=== PATIENT | female | born 1950 | race Caucasian/White ===

== ENCOUNTER → 2024-01-19 09:53 | Outpatient (REF) | payer MEDICARE, OTHER, SELFPAY | LOC: HWRAD 09:53 | PROVIDERS: ATTENDING PHYSICIAN Surgery; FAMILY PHYSICIAN Family Medicine | DX: K80.20 Calculus of gallbladder without cholecystitis without obstruction (principal) | CPT/HCPCS: 76700 ==

== ENCOUNTER → 2024-03-21 12:00 | Outpatient (REF) | payer MEDICARE, OTHER, SELFPAY | LOC: SDSPAT 12:00 | PROVIDERS: ATTENDING PHYSICIAN Surgery; FAMILY PHYSICIAN Family Medicine | DX: K80.20 Calculus of gallbladder without cholecystitis without obstruction (principal) | CPT/HCPCS: 36415; 93005 ==

== ENCOUNTER 2024-03-28 17:47 | Emergency (ER) | payer MEDICARE, OTHER, SELFPAY ==
[2024-03-28] VITALS (7 sets, daily range): BP systolic 110–167; BP diastolic 56–83; BMI 26.6
[2024-03-28 18:06] LABS: % Basophils 0.6 % (0-2); % Immature Granulocytes 0.5 % (0-0.5); % Lymphocytes 21.4 % (20.5-51.1); % Monocytes 8.7 % (1.7-9.3); % Neutrophils 65.8 % (42.2-75.2); Absolute Basophils 0.1 10^3/uL (0-0.2); Absolute Eosinophils 0.3 10^3/uL (0-0.7); Absolute Immature Granulocytes 0.1 10^3/uL (0-0.05); Absolute Lymphocytes 2.3 10^3/uL (1.2-3.4); Absolute Monocytes 0.9 10^3/uL (0.1-0.6); Absolute Neutrophils 6.9 10^3/uL (1.4-6.5); Hematocrit 42.8 % (37.0-47.0); Hemoglobin 14.2 g/dL (12.0-16.0); Mean Corp Hgb Conc. 33.2 g/dL (33.0-37.0); Mean Corpuscular Hgb 30.6 pg (27.0-31.0); Mean Corpuscular Volume 92.2 fL (81.0-99.0); Mean Platelet Volume 10.6 fL (7.4-10.4); Nucleated Red Blood Cells % 0 %; Platelet Count 277 10^3/uL (130-400); Red Blood Cell Count 4.64 10^6/uL (4.20-5.40); Red Cell Dist. Width 13.2 % (11.5-14.5); White Blood Cell Count 10.6 10^3/uL (4.8-10.8)
[2024-03-28 18:23] LABS: ALT (SGPT) 33 U/L (0-35); AST (SGOT) 32 U/L (14-36); Albumin 4.6 g/dl (3.5-5.0); Alkaline Phosphatase 52 U/L (38-126); Blood Urea Nitrogen 21 mg/dl (7-17); Calcium 9.8 mg/dl (8.4-10.2); Carbon Dioxide 27 mmol/L (22-30); Chloride 99 mmol/L (98-107); Glucose 114 mg/dl (70-99); Potassium 4.8 mmol/L (3.5-5.1); Sodium 138 mmol/L (135-145); Total Bilirubin 0.4 mg/dl (0.2-1.3); Total Protein 6.9 g/dl (6.3-8.2); eGFR > 60.00
[2024-03-28 18:26] LABS: Troponin I < 0.012 ng/ml
[2024-03-28 21:26] LABS: Troponin I < 0.012 ng/ml
--- NOTE | 2024-03-28 21:39 | ED.GENMED ---
History of Present Illness
General
Chief Complaint: Cardiac Symptoms
Source: patient
Exam Limitations: none
Time Seen by Provider: 03/28/24 19:45
Nursing documentation reviewed up to this point in time: agreed with
History of Present Illness
History of Present Illness:
73-year-old female with past medical history of GERD thyroid disease presenting to the emergency department with concerns of left-sided sharp chest discomfort made worse with movement and positioning over the past few hours prior to arrival to the
emergency department.. She also did get a flu shot earlier in the day denies any breath nausea vomiting numbness weakness.
Review of Systems
Review of Systems
Allergies reviewed?: Yes
All Other Systems: ROS reviewed and negative except as documented in HPI and ROS
Phy Exam
Physical Exam
Physical Exam:
GENERAL: Alert , in no apparent distress
EYE: pupils equal and reactive
NECK: Supple, no significant adenopathy.
ENT: o/p clr, mmm.
CARDIAC: Regular rate and rhythm .
LUNGS: Clear breath sounds bilaterally, no acute respiratory distress, no wheezes/rales/rhonchi
ABDOMEN: Soft, without focal tenderness, no r/g, no cvat
NEUROLOGICAL: Alert and oriented, no focal neuro deficits
SKIN: Warm and dry, skin intact.
MUSCULOSKELETAL: No edema, well perfused.
PSYCH: Normal and appropriate interaction.
Course
Orders/Labs/Results
Orders:
Orders
03/28/24 17:48
EKG [Electrocardiogram (*1)] Urgent
Reason for Study: Chest Pain
EKG- Treatment ONCE
03/28/24 17:59
Complete Blood Count/With Diff Urgent
Comprehensive Metabolic Panel Urgent
Troponin I Urgent
03/28/24 19:45
Chest [CR Chest - 2 Views ] Urgent
Comment:
Reason For Exam: CP
03/28/24 20:30
EKG [Electrocardiogram (*1)] Urgent
Reason for Study: Chest Pain
EKG- Treatment ONCE
03/28/24 20:57
Troponin I Urgent
Abnormal Lab Results
03/28/24
17:59
MPV 10.6 H fL
(7.4-10.4)
Abs Immat Gran (auto) 0.1 H 10^3/uL
(0-0.05)
Absolute Neuts (auto) 6.9 H 10^3/uL
(1.4-6.5)
Absolute Monos (auto) 0.9 H 10^3/uL
(0.1-0.6)
BUN 21 H mg/dl
(7-17)
Glucose 114 H mg/dl
(70-99)
03/28/24 17:59
03/28/24 17:59
Vital Signs
Initial and Last Documented VS:
Initial Vital Signs
Temp Pulse Resp BP Pulse Ox
98.1 F 79 20 167/83 99
03/28/24 17:48 03/28/24 17:48 03/28/24 17:48 03/28/24 17:48 03/28/24 17:48
Last Documented Vital Signs
Temp Pulse Resp BP Pulse Ox
98.1 F 88 16 110/56 98
03/28/24 17:48 03/28/24 21:00 03/28/24 21:00 03/28/24 21:00 03/28/24 19:02
MDM/Problems Addressed
MDM/Problems Addressed:
73-year-old female presenting to the emergency department today with concerns of left-sided chest discomfort. Upon arrival blood pressure elevated otherwise vital signs are normal blood pressure improving here without specific treatment. Pain is
reproducible to the chest wall which makes cardiac etiology unlikely at this time. Patient did have 2 negative troponin levels and 2 EKGs without significant changes. Chest x-ray without acute abnormalities and labs unremarkable. Patient advised
for close outpatient follow-up with cardiology and given strict return precautions.
*Critical Care Note
Total Time (30-74mins, 75-104mins- exclusive of procedures): Not Applicable
ED Attending Note
-
Portions of this chart may have been created with voice recognition software.� Occasional wrong word or��sound alike� substitutions may have occurred due to the inherent limitations of voice recognition software.
Discharge Plan
Departure
Patient Disposition: Home (Routine Discharge)
Date of Disposition: 03/28/24
Time of Disposition: 21:41
Patient with high blood pressure during this ER visit?: No
Condition: Good
Covid-19: Not Applicable
Discharge Problem:
Chest pain
Instructions: Chest Pain DCA Follow Up
Prescriptions:
No Action
acetaminophen [Tylenol Extra Strength] 500 MG tablet
1,000 mg PO Q4H PRN (Reason: pain)
Calcium
1 tab PO BID
atorvastatin 10 mg Tablet
10 mg PO DAILY
Patient Comments:
stopped due to muscle pain
levothyroxine 25 mcg Tablet
25 mcg PO DAILY
estradiol 0.01 % (0.1 mg/gram) Cream
1 g VAGINAL QWEEK
fluticasone propionate 50 mcg/actuation [place],Suspension
1 spray INTRANASAL DAILY
metronidazole 0.75 % Gel
1 applic TOPICAL DAILY
ibuprofen 200 mg Capsule
200 mg PO Q6H PRN (Reason: pain)
Prolia 60 mg/mL Syringe
60 mg SC [id number]
zinc 15 mg Tablet
15 mg PO DAILY
coenzyme Q10 [CoQ-10] 100 mg Capsule
300 mg PO DAILY
cholecalciferol (vitamin D3) [Vitamin D3] 50 mcg (2,000 unit) Capsule
50 mcg PO DAILY
alpha lipoic acid 600 mg Capsule
600 mg PO DAILY
magnesium citrate 125 mg Capsule
250 mg PO BID
Referrals:
Debra,James J., DO [Family Provider] -
Activity Restrictions/Additional Instructions:
You came to the emergency department today with concerns of chest discomfort. Here you had a reassuring assessment. Please follow closely with cardiology. Return to the emergency department for any worsening, new or concerning symptoms.
Interventions
Interventions:
*Risk Screen - Suicide Last Done: 03/28/24 17:48
*General Assessment Last Done: 03/28/24 17:48
*Neglect/Abuse Screening Last Done: 03/28/24 17:48
ED- Fall Risk Assessment Last Done: 03/28/24 19:01
*ED COVID-19 Vaccine History Last Done: 03/28/24 19:01
ED- Pulmonary Assessment Last Done: 03/28/24 19:02
ED- Cardiac Assessment Last Done: 03/28/24 19:02
Discharge Date and Time
Print Language: KHMER
== END 2024-03-28 21:56 | disposition home or self-care (01) ==
LOC: EMR 17:47
PROVIDERS: Emergency Medicine; Physician Assistant; EMERGENCY PHYSICIAN Emergency Medicine; FAMILY PHYSICIAN Family Medicine
DX: R07.89 Other chest pain (principal); K21.9 Gastro-esophageal reflux disease without esophagitis; E07.9 Disorder of thyroid, unspecified
CPT/HCPCS: 99283; 71046; 80053; 84484; 85025; 93005

== ENCOUNTER 2024-04-06 06:53 | Day surgery (SDC) | payer MEDICARE, OTHER, SELFPAY ==
[2024-03-21 12:29] VITALS: BMI 26.7
--- NOTE | 2024-03-22 15:25 | PTCARENOTE ---
Patients 03/21 ECG abnomral- reviewed by Dr. Merrill- no additional interventions required
[2024-04-06] VITALS (10 sets, daily range): BP systolic 108–144; BP diastolic 49–74; BMI 26.7
[2024-04-06] MEDS: NORMOSOL-R/PLASMALYTE-A 1000 IV (09:09)
[2024-04-06] MEDS: TYLENOL 1000 MG PO (09:09)
[2024-04-06] MEDS: TRANSDERM-SCOP 1 PATCH TRANSDERM (09:13)
--- NOTE | 2024-04-06 09:14 | W.SUR.PREOP ---
Pre-Operative Surgical Note
-
I have examined this patient prior to the performance of the scheduled procedure.
The patient's condition is unchanged from the time of the current History and
Physical and the patient is able to undergo the scheduled procedure.
--- NOTE | 2024-04-06 09:14 | HP.FOC2 ---
Focused History & Physical
Chief Complaint
HPI:
Chief Complaint: Cholelithiasis
HPI / Indication for Planned Procedure: This is a 73-year-old female with mildly symptomatic cholelithiasis over her gallstone has slowly been enlarging on serial imaging and thus elective cholecystectomy was offered.
Relevant Past Medical History: Other (Gastritis, Lyme disease)
Relevant Social History: Negative
Relevant Family History: Negative
Relevant Past Surgical History: Positive for
Review of Systems
Review of Pertinent Systems: All Systems Negative
Medication
See Medication form for detailed medications: Yes
Medication List (including Herbals & OTC):
Calcium 1 tab PO BID 05/09/09
acetaminophen 500 mg tablet (Tylenol Extra Strength) 1,000 mg PO Q4H PRN pain 05/09/09
alpha lipoic acid 600 mg capsule 600 mg PO DAILY 03/22/24
atorvastatin 10 mg tablet 10 mg PO DAILY 03/22/24
cholecalciferol (vitamin D3) 50 mcg (2,000 unit) capsule (Vitamin D3) 50 mcg PO DAILY 03/22/24
coenzyme Q10 100 mg capsule (CoQ-10) 300 mg PO DAILY 03/22/24
denosumab 60 mg/mL subcutaneous syringe (Prolia) 60 mg SC [id number] 03/22/24
estradiol 0.01% (0.1 mg/gram) vaginal cream 1 g vaginal QWEEK 03/22/24
fluticasone propionate 50 mcg/actuation nasal spray,suspension 1 spray intranasal DAILY 03/22/24
ibuprofen 200 mg capsule 200 mg PO Q6H PRN pain 03/22/24
levothyroxine 25 mcg tablet 25 mcg PO DAILY 03/22/24
magnesium citrate 125 mg capsule 250 mg PO BID 03/22/24
metronidazole 0.75 % topical gel 1 applic topical DAILY 03/22/24
zinc 15 mg tablet 15 mg PO DAILY 03/22/24
Medications Reviewed: Yes
Allergies and Reactions
Patient has Allergies: Yes
Noted Allergies and Reactions:
Allergy/AdvReac Type Severity Reaction Status Date / Time
codeine Allergy DIZZY/NAUSE Verified 04/06/24 08:44
A
Sulfa (Sulfonamide Allergy vomiting,di Verified 04/06/24 08:44
Antibiotics) zzy
Pertinent Physical Exam
All Other Systems: Negative
Head/Neck: Normal
Diagnosis / Assessment
This is a 73-year-old female with symptomatic cholelithiasis
Plan / Procedure
Will plan for laparoscopic cholecystectomy with cholangiogram.
Anesthesia/Sedation to be done by Anesthesia Provider: Yes
--- NOTE | 2024-04-06 11:03 | W.IMMPOSTOP ---
Surgical Immed Post Op Note
-
Primary Surgeon: Tamir Amaral MD
Assisting Surgeon: None
Pre-op Diagnosis: Cholelithiasis
Post-op Diagnosis: Chronic cholecystitis
Procedure Performed: Laparoscopic cholecystectomy with cholangiogram
Anesthesia Type: General
Specimen / Cultures: Gallbladder
Estimated Blood Loss: 7 cc
Complications: None
Operative Findings: Flimsy but significant adhesions of the sigmoid colon and duodenum over the anterior surface of the gallbladder consistent with chronic cholecystitis. Critical view of safety obtained prior to a cholangiogram which demonstrated
no distal filling defects and normal biliary anatomy. Small cystic duct ligated with three 5 mm titanium clips.
--- NOTE | 2024-04-06 11:04 | OR.RPT ---
Operative Report
Operative Report
Patient Name: Jimmy Finnegan
: 1950
Date of Operation: 04/06/2024
Preoperative Diagnosis: Symptomatic Cholelithiasis
Postoperative Diagnosis: Chronic cholecystitis
Procedure(s):
Laparoscopic Cholecystectomy with Cholangiogram
Surgeon(s):
Dr. Amaral
Senior Housekeeper(s):
SALVADOR Gray
Anesthesia: General
Estimated Blood Loss: 7 cc
Urine Output: None
Drains/Lines/Implants: None
Specimens:
1. Gallbladder and contents
HPI/Surgical Indications:
This is a 73 year old female who presents with cholelithiasis that had been enlarging on subsequent surveillance ultrasound imaging. Risks/Benefits/Alternatives were discussed at length, and the patient agreed to proceed with surgery.
Operative Findings: Flimsy but significant adhesions of the sigmoid colon and duodenum over the anterior surface of the gallbladder consistent with chronic cholecystitis. Critical view of safety obtained prior to a cholangiogram which demonstrated
no distal filling defects and normal biliary anatomy. Small cystic duct ligated with three 5 mm titanium clips.
Procedure Description:
The patient was brought to the Operating Room and placed in the supine position. IV antibiotics were infused and sequential compression devices were confirmed to be on. Following uneventful induction of general endotracheal anesthesia, an
orogastric tube was placed. The abdomen was prepped and draped in the usual sterile fashion. The abdomen was entered using an infraumbilical open [place] technique with a 12 mm trochar. Pneumoperitoneum to 15 mmHg pressure was obtained without
difficulty and we confirmed that no injury had occurred during our entry. The patient was positioned in reverse trendelenberg and rotated with the right side up slightly. Three (3) 5mm trocars were then placed along the right subcostal margin. A
locking grasping forceps was placed on the fundus of the gallbladder where it was then retracted cephalad and to the right. There was significant adhesions from the sigmoid colon and duodenum over the anterior surface of the gallbladder which was
carefully lysed using blunt and electrocautery dissection. Using appropriate grasping instruments, the peritoneum overlying the triangle of [place] was incised. The cystic duct/gallbladder junction was identified, dissected circumferentially. The
cystic artery was identified medially and was dissected circumferentially. A critical view was obtained. A clip was then placed on the cystic duct/gallbladder junction and an intraoperative cholangiogram performed using fluoroscopy, which showed
good flow of dye into the duodenum. There were no intra- or extrahepatic bile duct filling defects. The biliary anatomy appeared normal. Following completion of the cholangiogram, the catheter was removed. Two clips were then placed proximally on
the cystic duct and the duct divided. Two clips were placed proximally and one distally on the cystic artery, and the artery was divided. Remaining soft tissue attachments of the gallbladder to the liver bed were then divided using electrocautery.
There was some spillage of bile from our ductotomy, but no spillage of stones. The gallbladder bed was inspected and excellent hemostasis was obtained. The gallbladder was extracted through the 12 mm trocar site using an endocatch bag. The abdomen
was again irrigated and excellent hemostasis was assured. All remaining trocars were then removed and the pneumoperitoneum was evacuated. The 12 mm trocar site was closed using a figure of 8 of 0 PDS. All trocar sites were closed at the skin
level using 4-0 Monocryl followed by Dermabond. Overall, the patient tolerated the procedure well and was taken to the Recovery Room postoperatively in stable condition.
Wilmer was the attending physician and performed the procedure with assistance from the PA above. The assistance of SALVADOR Gray was required due to the complexity of the procedure. During the procedure Natividad assisted with retraction, resection, and
closure of the wound. Wilmer was present for all portions of the case, excluding wound closure.
Tamir Amaral MD
[2024-04-06] MEDS: ZOFRAN 4 MG IV (11:28)
[2024-04-06] MEDS: MOTRIN 600 MG PO (13:10)
== END 2024-04-06 14:15 | disposition home or self-care (01) ==
LOC: SDS 06:53
PROVIDERS: ATTENDING PHYSICIAN Surgery
DX: K80.10 Calculus of gallbladder with chronic cholecystitis without obstruction (principal); K66.0 Peritoneal adhesions (postprocedural) (postinfection)
CPT/HCPCS: 47563; 88304; 74300; 76000; A4300

== ENCOUNTER → 2024-05-09 12:55 | Outpatient (REF) | payer MEDICARE, OTHER, SELFPAY | LOC: HWRCS 12:55 | PROVIDERS: ATTENDING PHYSICIAN Internal Medicine Cardiovascular Disease; FAMILY PHYSICIAN Family Medicine | DX: R94.31 Abnormal electrocardiogram [ECG] [EKG] (principal) | CPT/HCPCS: 93306 ==

== ENCOUNTER → 2024-07-10 15:06 | Outpatient (REF) | payer MEDICARE, OTHER, SELFPAY | LOC: HWRAD 15:06 | PROVIDERS: ATTENDING PHYSICIAN Internal Medicine Rheumatology; FAMILY PHYSICIAN Family Medicine; REFERRING PHYSICIAN Obstetrics & Gynecology | DX: Z12.31 Encounter for screening mammogram for malignant neoplasm of breast (principal); M81.0 Age-related osteoporosis without current pathological fracture | CPT/HCPCS: 77063; 77067; 77080 ==

== ENCOUNTER 2024-08-11 10:56 | Emergency (ER) | payer MEDICARE, OTHER, SELFPAY ==
[2024-08-11 11:02] VITALS: BP 144/114
[2024-08-11 11:36] LABS: % Basophils 0.8 % (0-2); % Eosinophils 1.8 % (0-6); % Lymphocytes 23.3 % (20.5-51.1); % Monocytes 7.5 % (1.7-9.3); % Neutrophils 65.6 % (42.2-75.2); Absolute Basophils 0.1 10^3/uL (0-0.2); Absolute Eosinophils 0.2 10^3/uL (0-0.7); Absolute Immature Granulocytes 0.1 10^3/uL (0-0.05); Absolute Monocytes 0.6 10^3/uL (0.1-0.6); Absolute Neutrophils 5.5 10^3/uL (1.4-6.5); Mean Corp Hgb Conc. 32.6 g/dL (33.0-37.0); Mean Corpuscular Hgb 31.3 pg (27.0-31.0); Mean Platelet Volume 9.8 fL (7.4-10.4); Nucleated Red Blood Cells % 0 %; Platelet Count 361 10^3/uL (130-400); Red Blood Cell Count 4.79 10^6/uL (4.20-5.40); Red Cell Dist. Width 12.8 % (11.5-14.5); White Blood Cell Count 8.4 10^3/uL (4.8-10.8)
[2024-08-11 11:45] VITALS: BP 81/56
[2024-08-11 11:47] VITALS: BP 119/67
[2024-08-11 12:00] VITALS: BP 113/54
[2024-08-11 12:07] LABS: ALT (SGPT) 21 U/L (0-35); AST (SGOT) 26 U/L (14-36); Albumin 4.2 g/dl (3.5-5.0); Alkaline Phosphatase 67 U/L (38-126); Blood Urea Nitrogen 12 mg/dl (7-17); Calcium 9.8 mg/dl (8.4-10.2); Carbon Dioxide 30 mmol/L (22-30); Chloride 100 mmol/L (98-107); Glucose 107 mg/dl (70-99); Potassium 5.5 mmol/L (3.5-5.1); Sodium 136 mmol/L (135-145); Total Bilirubin 0.5 mg/dl (0.2-1.3); Total Protein 6.8 g/dl (6.3-8.2); eGFR > 60.00
--- NOTE | 2024-08-11 12:18 | ED.GENMED ---
History of Present Illness
General
Chief Complaint: Dizziness
Source: patient and spouse
Exam Limitations: none
Time Seen by Provider: 08/11/24 12:02
Nursing documentation reviewed up to this point in time: agreed with
History of Present Illness
History of Present Illness:
The patient is a pleasant 73-year-old female who has a 'history of being very sensitive to motion'. Patient reports that about 6 weeks ago she developed vertigo. Patient reports she was evaluated by a doctor in her practice and diagnosed with a
possible otitis media and given antibiotics, Zofran and meclizine. Additionally, she was given steroids. Patient reports she also has gone to at least 2 sessions of vestibular therapy over the last few weeks. The patient reports when she woke up
yesterday morning the vertigo was more intense so she scheduled a vestibular therapy appointment. During the appointment yesterday, the maneuvers made her symptoms worse, making it nearly impossible for her to walk. Patient reports continuous
nausea and dizziness despite taking meclizine and Zofran. Patient denies headache and vision changes at this time. She denies weakness and numbness. She denies fever. Patient reports that during physical therapy, she saw flashes of light when
she developed severe dizziness but this is gone.
Past History
Past History
ED Past Medical History: GERD and Other (Vertigo)
ED Past Surgical History: Gynecological and Orthopedic
Social History
Tobacco: Non-smoker
Alcohol: Other
Drug: None
Personal:
Living: with family
Employment: Other
Family History
Family History: Other
Review of Systems
Review of Systems
Allergies reviewed?: Yes
All Other Systems: ROS reviewed and negative except as documented in HPI and ROS
Constitutional: Reports no symptoms
EENT: Reports other
Respiratory: Reports no symptoms
Cardiac: Reports no symptoms
ABD/GI: Reports nausea
: Reports no symptoms
Musculoskeletal: Reports no symptoms
Skin: Reports no symptoms
Neurological: Reports dizzy
Endocrine: Reports no symptoms
Hematologic/Lymphatic: Reports no symptoms
Psychiatric: Reports no symptoms
Phy Exam
Physical Exam
Physical Exam:
Physical Exam
General: no apparent distress, not acutely ill. Well appearing
Neck: supple. no meningeal signs. normal psoterior pharynx
Heart: s1/s2 regular rate and rhythm, no murmur. equal radial pulses.
Lungs: no acute respiratory distress. clear bilaterally
Abdomen: normal bowel sounds. not tender. no CVAT
Neuro: alert and oriented. no focal neurological deficits. Normal finger-nose. Cranial nerves equal and symmetric bilaterally
Skin: no rash
Psychiatric: well kept. interactive and cooperative
Extremities: no edema. no calf tenderness. negative homans. good distal pulses
Course
Orders/Labs/Results
Orders:
Orders
08/11/24 10:59
ECG [Electrocardiogram (*1)] Urgent
Reason for Study: Vertigo / Dizzy
EKG- Treatment ONCE
08/11/24 11:07
CT Head W/o Iv Contrast Urgent
Comment:
Reason For Exam: dizziness
08/11/24 11:15
Complete Blood Count/With Diff Urgent
Comprehensive Metabolic Panel Urgent
08/11/24 12:43
Potassium Urgent
08/11/24 12:46
0.9% Sodium Chloride 1000 ml [Nss] 1,000 ml IV BOLUS
Diphenhydramine [Benadryl] 25 mg IV NOW STA
Prochlorperazine [Compazine] 10 mg IV NOW STA
Abnormal Lab Results
08/11/24
11:15
MCH 31.3 H pg
(27.0-31.0)
MCHC 32.6 L g/dL
(33.0-37.0)
Abs Immat Gran (auto) 0.1 H 10^3/uL
(0-0.05)
Immature Gran % 1.0 H %
(0-0.5)
Potassium 5.5 H mmol/L
(3.5-5.1)
Glucose 107 H mg/dl
(70-99)
08/11/24 11:15
08/11/24 12:43
Vital Signs
Initial and Last Documented VS:
Initial Vital Signs
Temp Pulse Resp BP Pulse Ox
98.3 F 87 16 144/114 100
08/11/24 11:02 08/11/24 11:02 08/11/24 11:02 08/11/24 11:02 08/11/24 11:02
Last Documented Vital Signs
Temp Pulse Resp BP Pulse Ox
98.3 F 77 12 126/63 95
08/11/24 11:02 08/11/24 14:15 08/11/24 14:15 08/11/24 14:00 08/11/24 14:15
MDM/Problems Addressed
Differential Diagnosis Includes:
Acute CVA, intracranial tumor, acute on chronic vertigo
MDM/Problems Addressed:
Patient presents with acute vertigo
Chronic conditions affecting care:
Patient has a history of chronic vertigo and balance and motion sickness issues according to the patient
Acute Exacerbation and/or Progression of Chronic Illness:
Patient likely presents with acute exacerbation of chronic vertigo
*Radiology
Radiology exam reviewed: radiology read reviewed
*Pulse Oximetry
Patient hypoxic: no
*EKG
Interpreted by ED Provider?: Yes
Interpretation: abnormal
Comparison EKG: no changes
Rate: normal
Rhythm: sinus
Ennice: normal axis
Interval: normal interval
QRS Pattern: normal QRS
Ischemia: T-wave inversion (Similar to prior)
*[place] Inspector Interpretation
Rate: normal
Interpretation: normal
Rhythm: sinus
*Critical Care Note
Total Time (30-74mins, 75-104mins- exclusive of procedures): Not Applicable
Data Reviewed
Review of Other/Old Records Reveals: Testing (Normal echo 2023)
Source: patient and spouse
Patient Management
Discussion with other providers: Other (Case discussed with Dr. Alvarez from ENT who agreed to have ENT office call patient today to schedule an appointment for next week. In the meantime, she recommended that the patient continue Zofran and use
diazepam every 8 hours as needed for dizziness and nausea)
Update Note
Update Note:
Patient feels better with the Compazine and Benadryl. She still has some degree of dizziness. Dr. Alvarez from ENT assures me that patient will be called today for follow-up. Patient has a normal neurological exam and looks well. There is no sign
of stroke
ED Attending Note
-
Portions of this chart may have been created with voice recognition software.� Occasional wrong word or��sound alike� substitutions may have occurred due to the inherent limitations of voice recognition software.
Discharge Plan
Departure
Patient Disposition: Home (Routine Discharge)
Date of Disposition: 08/11/24
Time of Disposition: 14:43
Patient with high blood pressure during this ER visit?: Yes
Condition: Good
Covid-19: Not Applicable
Discharge Problem:
Acute on chronic vertigo
Instructions: Vertigo (a type of dizziness), BLOOD PRESSURE
Prescriptions:
New
diazepam 2 mg tablet
2 mg PO TID PRN (Reason: dizziness) Qty: 14 0RF
No Action
acetaminophen [Tylenol Extra Strength] 500 MG tablet
1,000 mg PO Q4H PRN (Reason: pain)
Calcium
1 tab PO BID
atorvastatin 10 mg Tablet
10 mg PO DAILY
Patient Comments:
stopped due to muscle pain
levothyroxine 25 mcg Tablet
25 mcg PO DAILY
estradiol 0.01 % (0.1 mg/gram) Cream
1 g VAGINAL QWEEK
fluticasone propionate 50 mcg/actuation [place],Suspension
1 spray INTRANASAL DAILY
metronidazole 0.75 % Gel
1 applic TOPICAL DAILY
ibuprofen 200 mg Capsule
200 mg PO Q6H PRN (Reason: pain)
Prolia 60 mg/mL Syringe
60 mg SC [id number]
zinc 15 mg Tablet
15 mg PO DAILY
coenzyme Q10 [CoQ-10] 100 mg Capsule
300 mg PO DAILY
cholecalciferol (vitamin D3) [Vitamin D3] 50 mcg (2,000 unit) Capsule
50 mcg PO DAILY
alpha lipoic acid 600 mg Capsule
600 mg PO DAILY
magnesium citrate 125 mg Capsule
250 mg PO BID
tramadol 50 mg tablet
25 mg PO Q6HPRN PRN (Reason: severe pain/breakthrough pain) Qty: 8 0RF
Referrals:
James Richardson DO [Family Provider] -
Gemini Alvarez MD [Active] -
Activity Restrictions/Additional Instructions:
Follow-up with ENT. They should be calling you on the phone to set up an appointment
Continue to use the Zofran every 8 hours as needed for nausea
Instead of using the meclizine, please try the diazepam every 8 hours as needed for dizziness. Please do not drive while using the diazepam
Interventions
Interventions:
*Risk Screen - Suicide Last Done: 08/11/24 11:02
*General Assessment Last Done: 08/11/24 11:02
ED- Fall Risk Assessment Last Done: 08/11/24 14:43
ED- Neurological Assessment Last Done: 08/11/24 12:07
ED- Cardiac Assessment Last Done: 08/11/24 12:07
ED Swallowing Screen Last Done: 08/11/24 12:10
Discharge Date and Time
Print Language: NIGERIAN
[2024-08-11] MEDS: NSS 1000 IV (12:52)
[2024-08-11] MEDS: BENADRYL 25 MG IV (12:54)
[2024-08-11] MEDS: COMPAZINE 10 MG IV (12:54)
[2024-08-11 13:00] VITALS: BP 126/56
[2024-08-11 13:14] LABS: Potassium 4.5 mmol/L (3.5-5.1)
[2024-08-11 14:00] VITALS: BP 126/63
== END 2024-08-11 15:04 | disposition home or self-care (01) ==
LOC: EMR 10:56
PROVIDERS: Emergency Medicine; EMERGENCY PHYSICIAN Emergency Medicine; FAMILY PHYSICIAN Family Medicine
DX: R42 Dizziness and giddiness (principal); K21.9 Gastro-esophageal reflux disease without esophagitis
CPT/HCPCS: 99284; 96374; 96375; 96361; 70450; 80053; 84132; 85025; 93005

== ENCOUNTER → 2024-12-14 09:39 | Outpatient (REF) | payer MEDICARE, OTHER, SELFPAY | LOC: WDC 09:39 | PROVIDERS: ATTENDING PHYSICIAN Family Medicine | DX: R92.333 Mammographic heterogeneous density, bilateral breasts (principal) | CPT/HCPCS: 76641 ==

== ENCOUNTER → 2025-01-09 15:11 | Outpatient (REF) | payer MEDICARE, OTHER, SELFPAY | LOC: HWRAD 15:11 | PROVIDERS: ATTENDING PHYSICIAN Physical Medicine & Rehabilitation; FAMILY PHYSICIAN Family Medicine | DX: M25.552 Pain in left hip (principal) | CPT/HCPCS: 73502 ==